=== PATIENT | female | born 1970 ===

== ENCOUNTER → 2016-12-17 | Outpatient (CLI) | payer BC ==
--- NOTE | 2016-12-17 16:34 | MAMMOGRAPHY REPORT ---
BILATERAL DIGITAL SCREENING MAMMOGRAM TOMOSYNTHESIS WITH CAD: 12/17/2016 CLINICAL HISTORY: Routine screening. Patient has no complaints. TECHNIQUE: Breast tomosynthesis in addition to standard 2D mammography was performed. Current study was also evaluated with a Computer Aided Detection (CAD) system. COMPARISON: Comparison is made to exams dated: 10/21/2015 mammogram, 10/16/2014 mammogram, 10/17/20 13 mammogram, 09/23/2012 mammogram, 10/06/2011 mammogram, and 09/03/2010 mammogram - [facility]. BREAST COMPOSITION: The tissue of both breasts is heterogeneously dense, which may obscure small ma sses. FINDINGS: No suspicious masses, calcifications, or areas of architectural distortion are noted in e ither breast. There has been no significant interval change compared to prior exams. Oval circumscr ibed benign-appearing 14 mm mass in the left upper outer quadrant is stable dating back to at least the 2012 exam. Left subareolar asymmetry on the MLO view is also stable dating back to at least the 2009 exam and therefore compatible with normal fibroglandular tissue. IMPRESSION: ACR BI-RADS CATEGORY 2: BENIGN There is no mammographic evidence of malignancy. A 1 year screening mammogram is recommended. The p atient will receive written notification of the results. Approximately 10% of breast cancers are not detected with mammography. A negative mammographic repor t should not delay biopsy if a clinically suggestive mass is present. Zahra Hardin M.D. /:12/17/2016 15:26:30 Hyster Driver: Carol Urias, [facility] letter sent: Normal 1/2 BI-RADS Code: ACR BI-RADS Category 2: Benign
== END | disposition home or self-care (01) ==
LOC: C.MAMM 11:23
PROVIDERS: ATTEND Obstetrics & Gynecology
DX: Z12.31 Encounter for screening mammogram for malignant neoplasm of breast (principal)

== ENCOUNTER → 2017-05-18 | Outpatient (CLI) | payer BC ==
[2017-05-18 13:37] LABS: ESTIMATED AVERAGE GLUCOSE 137 mg/dl; HA1C FLAG Normal (Normal)
[2017-05-18 13:43] LABS: RATIO 127.4 mcg/mg (0-30.0)
[2017-05-18 13:49] LABS: ALT/SGPT 27 U/L (12-78); AST/SGOT 12 U/L (15-37); BLOOD UREA NITROGEN 7 mg/dl (7-18); BUN/CREATININE RATIO 10.7 (10-20); CALCIUM 8.4 mg/dl (8.5-10.1); CARBON DIOXIDE 26 mmol/L (21-32); CHLORIDE 108 mmol/L (98-107); CREATININE 0.61 mg/dl (0.60-1.20); GLUCOSE 134 mg/dl (70-99); POTASSIUM 3.8 mmol/L (3.5-5.1); SODIUM 141 mmol/L (136-145)
[2017-05-18 13:52] LABS: ALB/GLOB RATIO 1.1 (0.9-2); ALKALINE PHOSPHATASE 39 U/L (45-117); CHOLESTEROL 136 mg/dl (0-200); CHOLESTEROL/HDL RATIO 4.1; HDL CHOLESTEROL 33 mg/dl; LDL CHOLESTEROL CALCULATED 32 mg/dl; TRIGLYCERIDES 353 mg/dl (0-150); VERY LOW DENSITY LIPOPROT CALC 71 mg/dl
[2017-05-18 13:59] LABS: BASO % 0.7 %; BASO ABS # 0.04 K/uL (0-0.2); COMPLETE YES; EOS % 1.8 %; HEMATOCRIT 40.7 % (37-47); IG% 0.2 %; LYMPH ABS # 1.81 K/uL (1.2-3.4); MEAN CELL VOLUME 90.4 fL (80-100); MEAN CORPUSCULAR HEMOGLOBIN 31.3 pg (25-34); MEAN CORPUSCULAR HGB CONC 34.6 g/dl (32-36); MEAN PLATELET VOLUME 9.9 fL (7.4-10.4); MONO % 6.7 %; NEUT % 58.6 %; PLATELET COUNT 195 K/uL (130-400); WHITE BLOOD COUNT 5.65 K/uL (4.8-10.8)
== END | disposition home or self-care (01) ==
LOC: C.LABMFLN 09:05
PROVIDERS: ATTEND Physician Assistant
DX: E78.1 Pure hyperglyceridemia (principal); E11.9 Type 2 diabetes mellitus without complications; I10 Essential (primary) hypertension

== ENCOUNTER → 2017-11-24 | Outpatient (CLI) | payer BC ==
[2017-11-24 12:44] LABS: BASO % 0.6 %; BASO ABS # 0.05 K/uL (0-0.2); EOS % 1.7 %; EOS ABS # 0.15 K/uL (0-0.5); HEMATOCRIT 40.8 % (37-47); HEMOGLOBIN 14.3 g/dL (12.0-16.0); IG# 0.03 K/uL (0.00-0.02); LYMPH % 24.6 %; LYMPH ABS # 2.15 K/uL (1.2-3.4); MEAN CELL VOLUME 91.1 fL (80-100); MEAN CORPUSCULAR HEMOGLOBIN 31.9 pg (25-34); MEAN PLATELET VOLUME 9.7 fL (7.4-10.4); MONO % 5.7 %; NEUT % 67.1 %; NEUT ABS # 5.87 K/uL (1.4-6.5); PLATELET COUNT 233 K/uL (130-400); RED CELL DISTRIBUTION WIDTH CV 13.3 % (11.5-14.5); RED CELL DISTRIBUTION WIDTH SD 43.9 fL (36.4-46.3); WHITE BLOOD COUNT 8.75 K/uL (4.8-10.8)
[2017-11-24 13:25] LABS: HEMOGLOBIN A1C 7.2 % (4.5-5.6)
[2017-11-24 13:59] LABS: BLOOD UREA NITROGEN 11 mg/dl (7-18); CREATININE 0.64 mg/dl (0.60-1.20); GLUCOSE 139 mg/dl (70-99)
[2017-11-24 14:00] LABS: ALBUMIN 3.6 gm/dl (3.4-5.0); ALT/SGPT 16 U/L (12-78); AST/SGOT 10 U/L (15-37); CALCIUM 8.6 mg/dl (8.5-10.1); CARBON DIOXIDE 25 mmol/L (21-32); POTASSIUM 3.6 mmol/L (3.5-5.1); SODIUM 136 mmol/L (136-145)
[2017-11-24 14:10] LABS: ALKALINE PHOSPHATASE 62 U/L (45-117); CHOLESTEROL 144 mg/dl (0-200); LDL CHOLESTEROL CALCULATED 73 mg/dl; TOTAL PROTEIN 7.6 gm/dl (6.4-8.2)
== END | disposition home or self-care (01) ==
LOC: C.LABMFLN 07:58
PROVIDERS: ATTEND Physician Assistant
DX: E78.1 Pure hyperglyceridemia (principal); E11.9 Type 2 diabetes mellitus without complications; I10 Essential (primary) hypertension

== ENCOUNTER → 2018-02-18 | Outpatient (CLI) | payer BC ==
--- NOTE | 2018-02-21 08:07 | MAMMOGRAPHY REPORT ---
BILATERAL DIGITAL SCREENING MAMMOGRAM TOMOSYNTHESIS WITH CAD: 02/18/2018 CLINICAL HISTORY: Routine screening. Patient has no complaints. TECHNIQUE: Breast tomosynthesis in addition to standard 2D mammography was performed. Current study was also evaluated with a Computer Aided Detection (CAD) system. COMPARISON: Comparison is made to exams dated: 12/17/2016 mammogram - [facility], 1 12/22/2014 mammogram, 05/14/2015 mammogram, 11/14/2014 mammogram, 10/16/2014 mammogram, and 10/17/2013 ammogram - [facility]. BREAST COMPOSITION: The tissue of both breasts is heterogeneously dense, which may obscure small mas ses. FINDINGS: There is a partially visualized 7 mm asymmetry seen within the left inferior posterior liset st on the MLO view only, which may represent normal overlapping fibroglandular tissue although spot c ompression tomosynthesis views and possible breast ultrasound are recommended for further evaluation. The remainder of both breasts are stable compared to prior exams, without suspicious masses, calcific ations, or areas of architectural distortion noted. Benign-appearing mass within the left upper oute r quadrant is stable compared to prior exams. Scattered bilateral benign-appearing calcifications ar e unchanged. IMPRESSION: ACR BI-RADS CATEGORY 0: INCOMPLETE EVALUATION: NEED ADDITIONAL IMAGING EVALUATION Left breast asymmetry, for which additional imaging evaluation is recommended. The patient will be c alled to schedule an appointment. Approximately 10% of breast cancers are not detected with mammography. A negative mammographic report should not delay biopsy if a clinically suggestive mass is present. Zahra Hardin M.D. /:02/18/2018 16:33:47 Service Desk Manager: Jacquie Zaman RT(R)(M)(BD), [facility] letter sent: Addl Imaging 0 BI-RADS Code: ACR BI-RADS Category 0: Incomplete Evaluation: Need Additional Imaging Evaluation
== END ==
LOC: C.MAMM 11:48
PROVIDERS: ATTEND Physician Assistant
DX: Z12.31 Encounter for screening mammogram for malignant neoplasm of breast (principal)

== ENCOUNTER → 2018-02-25 | Outpatient (CLI) | payer BC ==
--- NOTE | 2018-02-28 07:48 | MAMMOGRAPHY REPORT ---
UNILATERAL LEFT DIGITAL DIAGNOSTIC MAMMOGRAM TOMOSYNTHESIS AND TARGETED LEFT ULTRASOUND: 02/25/2018 CLINICAL HISTORY: Callback from screening mammogram for left breast asymmetry. TECHNIQUE: Breast tomosynthesis in addition to standard 2D mammography was performed. Left spot com pression MLO 2D and tomosynthesis images were obtained. COMPARISON: Comparison is made to exams dated: 02/18/2018 mammogram, 12/17/2016 mammogram - [facility], 10/21/2015 mammogram, 05/14/2015 mammogram, 11/14/2014 mammogram, and 10/16/2014 ma mmogram - [facility]. BREAST COMPOSITION: The tissue of the left breast is heterogeneously dense, which may obscure small masses. FINDINGS: The previously described asymmetry in the left inferior posterior breast seen on the MLO vi ew only nearly completely effaces on the spot compression views, and has the appearance of normal fib roglandular tissue on the additional tomosynthesis images. Targeted ultrasound was performed of the left inferior posterior breast in the region of the mammogra phic asymmetry. The background parenchymal echotexture is heterogeneous which reduces the sensitivit y of the exam. However, sonographically normal tissue is seen without evidence of a mass or other beasley spicious sonographic abnormality. IMPRESSION: ACR-BI-RADS CATEGORY 3: PROBABLY BENIGN, TARGETED ULTRASOUND ACR-BI-RADS CATEGORY 3: PRO BABLY BENIGN The left breast asymmetry has the appearance of normal fibroglandular tissue on the tomosynthesis vickie ges, without a corresponding suspicious sonographic abnormality evident. Findings are benign and lik erickson represent normal fibroglandular tissue. Recommend follow-up diagnostic tomosynthesis mammograms and possible targeted ultrasound of the left breast in 6 months to confirm stability. The patient has been verbally notified of the results. Approximately 10% of breast cancers are not detected with mammography. A negative mammographic report should not delay biopsy if a clinically suggestive mass is present. Zahra Hardin M.D. /:02/25/2018 11:44:59 Estimator And Drafter: Sharon SAGE)([place]), [facility] letter sent: Follow Up Recommended 3 BI-RADS Code: ACR-BI-RADS Category 3: Probably Benign Ultrasound BI-RADS: ACR-BI-RADS Category 3: Pr obably Benign
== END | disposition home or self-care (01) ==
LOC: C.MAMM 11:07
PROVIDERS: ATTEND Physician Assistant
DX: N64.89 Other specified disorders of breast (principal)

== ENCOUNTER → 2018-03-23 | Outpatient (CLI) | payer BC ==
[2018-03-23 13:36] LABS: HEMOGLOBIN A1C 7.7 % (4.5-5.6)
[2018-03-23 13:42] LABS: ALBUMIN 3.8 gm/dl (3.4-5.0); ALKALINE PHOSPHATASE 45 U/L (45-117); ALT/SGPT 17 U/L (12-78); AST/SGOT 7 U/L (15-37); BLOOD UREA NITROGEN 8 mg/dl (7-18); CALCIUM 8.9 mg/dl (8.5-10.1); CARBON DIOXIDE 24 mmol/L (21-32); CHOLESTEROL 135 mg/dl (0-200); CREATININE 0.67 mg/dl (0.60-1.20); GLUCOSE 117 mg/dl (70-99); LDL CHOLESTEROL CALCULATED 53 mg/dl; POTASSIUM 3.6 mmol/L (3.5-5.1); SODIUM 139 mmol/L (136-145); TOTAL PROTEIN 7.8 gm/dl (6.4-8.2)
[2018-03-23 13:48] LABS: CREATININE RANDOM URINE 82.4 mg/dl
== END | disposition home or self-care (01) ==
LOC: C.LABMFLN 07:50
PROVIDERS: ATTEND Physician Assistant
DX: E78.1 Pure hyperglyceridemia (principal); E11.9 Type 2 diabetes mellitus without complications; I10 Essential (primary) hypertension